=== PATIENT | male | born 1955 | race Caucasian/White ===

== ENCOUNTER 2021-05-08 13:51 | Emergency (ER) | payer OTHER ==
[~2021-05-08] VITALS: Ht 180.3 cm; Wt 138.3 kg
[2021-05-08] MEDS ORDERED: LISINOPRIL10 MG PO (16:32)
--- OUTSIDE RECORDS SUMMARY | 2021-05-08 19:30 | XMS ---
PreManage Notification: LISA COBOS [employer] Events No recent Security Events currently on file CRITERIA MET - [facility] - 2 Visits in 30 Days CARE PROVIDERS There are no care providers on record at this time. Jarod has no Care Guidelines for this patient. [place] VISIT COUNT (12 MO.) 2 [facility] NOTE: Visits indicate total known visits. ED/UCC VISIT TRACKING (12 MO.) [facility]21 13[facility] [place] [facility] COMPLAINT: - FLU SYMPTOMS, LEG/ARM CRAMPS, FEVER, BODY ACHES 04/21/2021 11:12 [facility] [place] TYPE: Emergency DIAGNOSES: - Skin Problem - Wound Check - Cellulitis of buttock 04/18/2021 14:38 [facility] [place] TYPE: Emergency DIAGNOSES: - Cutaneous abscess of buttock - Skin Problem - Cellulitis of buttock INPATIENT VISIT TRACKING (12 MO.) No inpatient visits to display in this time frame [email or web address]
== END 2021-05-08 19:29 | disposition home or self-care (01) ==
LOC: ED 13:51
DX: U07.1 COVID-19 (principal); I10 Essential (primary) hypertension; Z23 Encounter for immunization; Z88.0 Allergy status to penicillin; Z79.899 Other long term (current) drug therapy
CPT/HCPCS: 99284-25; C9803; M0243; Q0244; U0003